=== PATIENT | male | born 1975 | race Hispanic/Latino ===

== ENCOUNTER 2016-05-21 16:45 | Emergency (ER) | payer SELFPAY ==
[~2016-05-21] VITALS: Ht 167.6 cm; Wt 76.3 kg
[~2016-05-21 16:45] MED LIST: FOLIC ACID1 MG PO; KEFLEX500 MG PO; LIPITOR40 MG PO; PRAVACHOL40 MG PO; THERAGRAN1 TABLET PO; VITAMIN B-1100 MG PO; ZOFRAN4 MG PO
[2016-05-21 17:39] LABS: HEMATOCRIT 47.3 % (38.0-50.0); MCH 30.6 PG (29.0-34.0); MCHC 35.7 G/DL (30.0-36.0); MCV 85.7 FL (86-99); MEAN PLAT.VOLUME 10.3 uM^3 (9.0-12.4); PLATELET COUNT 349 K/uL (156-360); RBC DIS.WIDTH-CV 13.3 % (11.8-14.6); RBC DIS.WIDTH-SD 41.3 % (39-53); RED BLOOD COUNT 5.52 M/uL (4.00-5.50); WHITE BLOOD COUNT 5.3 K/uL (4.1-10.2)
[2016-05-21 17:53] LABS: CHLORIDE 105 mEq/L (99-109); POTASSIUM 4.1 mEq/L (3.7-5.4); SODIUM 142 mEq/L (136-147)
[2016-05-21 17:55] LABS: GLUCOSE 141 mg/dL (70-99)
[2016-05-21 17:56] LABS: ANION GAP 18 MEQ/L (2-14)
[2016-05-21 17:58] LABS: SERUM ETHYL ALCOHOL 356 mg/dL
[2016-05-21 17:59] LABS: GFR ESTIMATE (CALCULATED) > 59 mL/min/
[2016-05-21 18:00] LABS: UREA NITROGEN (BUN) 7 mg/dL (9-23)
[2016-05-21 18:01] LABS: CREATINE KINASE 317 IU/L (1-294)
[2016-05-21 20:59] VITALS: BP 139/92
== END 2016-05-21 21:01 | disposition home or self-care (01) ==
LOC: EME 16:45
PROVIDERS: Emergency Medicine
DX: F10.129 Alcohol abuse with intoxication, unspecified (principal); M79.641 Pain in right hand; M79.642 Pain in left hand; M62.82 Rhabdomyolysis; Y90.8 Blood alcohol level of 240 mg/100 ml or more
CPT/HCPCS: 80048; 82550; 85027; 99281; 99284; G0480; J7030